=== PATIENT | male | born 1960 | race Caucasian/White ===

== ENCOUNTER 2025-01-27 16:22 | Emergency (ER) | payer SELFPAY ==
[~2025-01-27] VITALS: Ht 193 cm; Wt 91.0 kg
[2025-01-27 16:29] VITALS: O2SAT 99
[2025-01-27 16:59] VITALS: BP 170/116; PULSE 98; RESP 18; TEMP 36.9; O2SAT 100
== END 2025-01-27 19:03 | disposition left against medical advice (07) ==
LOC: ER 16:22
DX: R07.89 Other chest pain (principal); I10 Essential (primary) hypertension; I25.2 Old myocardial infarction; I45.10 Unspecified right bundle-branch block; Z55.6 Problems related to health literacy; Z95.0 Presence of cardiac pacemaker
CPT/HCPCS: 71045; 93005; 99283